=== PATIENT | male | born 2000 | race American Indian/Alaskan Native ===

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

== ENCOUNTER 2018-04-03 21:35 | Emergency (ER) | payer MEDICAID, OTHER ==
[2018-04-03 21:42] VITALS: BP 143/86
[2018-04-03] MEDS: Acetaminophen/HYDROcodone 325-10 MG Tab PO ONE (21:56)
--- NOTE | 2018-04-03 22:54 | EDM.PDOC ---
ED HPI GENERAL MEDICAL PROBLEM - General Chief Complaint: Lower Extremity Injury/Pain Stated Complaint: LEFT KNEE [id number] Time Seen by Provider: 04/03/18 21:55 Source of Information: Reports: Patient History Limitations: Reports: No Limitations - History of Present Illness INITIAL COMMENTS - FREE TEXT/NARRATIVE: ED per w/c with c/o left knee pain. Reported playing basketball [employer] and momentum going one way and knee went other. No other injury. Pain with minimal movement, Has not tried weight bearing. Left Knee Pain Score (Numeric/FACES): 10 - Related Data Allergies Allergy/AdvReac Type Severity Reaction Status Date / Time No Known Allergies Allergy Verified 04/03/18 21:38 Home Meds: Home Meds . [No Known Home Meds] 12/01/13 [History] Past Medical History - Past Health History Medical/Surgical History: Denies Medical/Surgical History HEENT History: Reports: None Cardiovascular History: Reports: None Respiratory History: Reports: None Gastrointestinal History: Reports: Bowel Obstruction, Other (See Below) Other Gastrointestinal History: small bowel obs?? Genitourinary History: Reports: None Musculoskeletal History: Reports: None Neurological History: Reports: None Psychiatric History: Reports: None Endocrine/Metabolic History: Reports: None Hematologic History: Reports: None Immunologic History: Reports: None Oncologic (Cancer) History: Reports: None Dermatologic History: Reports: None - Past Surgical History GI Surgical History: Reports: Other (See Below) Social & Family History - Family History Family Medical History: Unobtainable Endocrine/Metabolic: Reports: Diabetes, type II - Tobacco Use Smoking Status *Q: Light Tobacco Smoker Years of Tobacco use: 1 Packs/Tins Daily: 0.1 - Caffeine Use Caffeine Use: Reports: Soda - Recreational Drug Use Recreational Drug Use: No - Living Situation & Occupation Living situation: Reports: with Family Review of Systems - Review of Systems Review Of Systems: ROS reveals no pertinent complaints other than HPI. ED EXAM, GENERAL - Physical Exam Exam: See Below Exam Limited By: No Limitations General Appearance: Alert, Moderate Distress Eye Exam: Bilateral Eye: EOMI Ears: Normal External Exam Nose: Normal Inspection Throat/Mouth: Normal Inspection Head: Atraumatic, Normocephalic Neck: Normal Inspection Respiratory/Chest: No Respiratory Distress, Lungs Clear Cardiovascular: Regular Rate, Rhythm Extremities: Joint Swelling (left knee , mild swelling, no gross deformity mild crepitus), Limited Range of Motion, Other (pain with palpation greater medial no laxity. incerease pain with flexion). No: Normal Range of Motion Course - Vital Signs Last Recorded V/S: Last Vital Signs Temp 98.3 F 04/03/18 21:41 Pulse 102 H 04/03/18 21:41 Resp 22 H 04/03/18 21:41 BP 143/86 H 04/03/18 21:41 Pulse Ox 100 04/03/18 21:41 - Orders/Labs/Meds Meds: Medications Discontinued Medications Generic Name Dose Route Start Last Admin Trade Name Freq PRN Reason Stop Dose Admin Hydrocodone Bitart/Acetaminophen 1 tab 04/03/18 21:47 04/03/18 21:56 Weston 325-10 Mg PO 04/03/18 21:48 1 tab ONETIME ONE Administration - Radiology Interpretation Free Text/Narrative:: Xray left knee, soft tissue swelling no fracture Departure - Departure Time of Disposition: 22:50 Disposition: Home, Self-Care 01 Condition: Good Clinical Impression: Left knee injury Qualifiers: Encounter type: initial encounter Qualified Code(s): S89.92XA - Unspecified injury of left lower leg, initial encounter - Discharge Information *PRESCRIPTION DRUG MONITORING PROGRAM REVIEWED*: No Instructions: Knee Sprain, Adult, [id number] Forms: ED Department Discharge Additional Instructions: knee immobilizer and crutches, weight bearing as tolerated ice to left knee alternate tylenol 650mg and ibuprofen 600mg every 4 hours as needed Follow with primary care this week or next, if continued pain or weakness MRI may be needed.
== END 2018-04-03 22:58 | disposition home or self-care (01) ==
LOC: DL.ED 21:35
DX: S89.92XA Unspecified injury of left lower leg, initial encounter (principal); F17.210 Nicotine dependence, cigarettes, uncomplicated; X50.9XXA Other and unspecified overexertion or strenuous movements or postures, initial encounter; Y93.67 Activity, basketball
CPT/HCPCS: 73562; 99283; A9270

== ENCOUNTER 2021-02-01 23:36 | Inpatient (IN) | payer MEDICAID, OTHER ==
[2021-02-02] MEDS ORDERED: Sodium Chloride 0.9% 1,000 ML IV ONE ×2 (00:15→03:20)
[2021-02-02] MEDS ORDERED: Ondansetron 4 MG/2 ML SDV IV ONE (00:15)
[2021-02-02 00:34] LABS: ANION GAP 13.7 mEq/L (7-13); CHLORIDE,CL 105 mmol/L (98-107); SODIUM,NA 144 mmol/L (136-145)
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
[2021-02-02] MEDS ORDERED: Iopamidol 612 MG/ML 100 ML Bottle IVPUSH ONE (00:46)
[2021-02-02 02:47] LABS: CORONAVIRUS COVID-19 NAA NEGATIVE (NEGATIVE)
--- NOTE | 2021-02-02 03:07 | CT ---
PROCEDURE INFORMATION: Exam: CT Abdomen And Pelvis With Contrast Exam date and time: 02/02/2021 1:59 AM Age: 20 years old Clinical indication: Vomiting and other: Wbc 11.7; Additional info: Abdominal pain, HX sbo TECHNIQUE: Imaging protocol: Computed tomography of the abdomen and pelvis with contrast. Radiation optimization: All CT scans at this facility use at least one of these dose optimization techniques: automated exposure control; mA and/or kV adjustment per patient size (includes targeted exams where dose is matched to clinical indication); or iterative reconstruction. Contrast material: [id number]; Contrast volume: 100 ml; Contrast route: INTRAVENOUS (IV); COMPARISON: CT Chest Abdomen Pelvis w Cont 08/09/2018 2:30 AM FINDINGS: Lungs: Mild hypoventilatory change dependent left lung. Liver: Hepatic steatosis. Lobulated low-attenuation in a subcapsular location associated with the anterior aspect of the posterior segment of the right lobe of the liver. Gallbladder and bile ducts: Normal. No calcified stones. No ductal dilation. Pancreas: Normal. No ductal dilation. Spleen: Normal. No splenomegaly. Adrenal glands: Normal. No mass. Kidneys and ureters: Normal. No hydronephrosis. Stomach and bowel: The there is fluid distension of mid to distal small bowel associated with fecalization of small bowel content, proximal to a site of moderately abrupt transition in the midline lower anterior abdomen. This appears to be due to site of clumped/tethered and adherent loops of small bowel likely related to adhesions. Terminal ileum and distal ileal loops are collapsed. Small bowel is dilated to a diameter of to 4.0 cm proximal to the site of transition and 12/09. Appendix: Appendix is normal in caliber without inflammatory change. Intraperitoneal space: There is mild edema and small amount fluid within the associated mesenteric fat in the lower anterior abdomen. Vasculature: Unremarkable. No abdominal aortic aneurysm. Lymph nodes: Unremarkable. No enlarged lymph nodes. Urinary bladder: Unremarkable as visualized. Reproductive: Unremarkable as visualized. Bones/joints: Unremarkable. No acute fracture. Soft tissues: Unremarkable. IMPRESSION: Moderate grade small bowel obstruction at the lower of the lobar and anterior abdomen involving proximal/mid ileum. There are tethered loops of small bowel in the anterior right paramidline lower abdomen with there is a moderate degree of transition with bowel proximal to the site partial obstruction measuring up to 4.0 cm. The bowel distal to the perceived site obstruction measures less than a cm in diameter. Lobulated subcapsular low-attenuation soft tissue within the posterior segment right lobe of the liver may represent focal fatty infiltration or may be cystic or solid. Consider initial further assessment with hepatic ultrasound to aid characterization.
[2021-02-02] MEDS ORDERED: fentaNYL 100 MCG/2 ML SDV IVPUSH ONE (03:52)
--- NOTE | 2021-02-02 04:09 | CR ---
PROCEDURE INFORMATION: Exam: XR Abdomen Exam date and time: 02/02/2021 3:54 AM Age: 20 years old Clinical indication: Other: Ng placement; Additional info: Confirm ng/og tube placement TECHNIQUE: Imaging protocol: XR of the abdomen. Views: Frontal supine view of the abdomen. 1 View. COMPARISON: CT Abdomen Pelvis w Cont 02/02/2021 1:59 AM FINDINGS: Tubes, catheters and devices: Tip of enteric catheter is in the region of the gastric body. Lungs: Visualized lungs are clear. Gastrointestinal tract: Normal. No bowel dilation. Bones/joints: Unremarkable. IMPRESSION: Tip of enteric catheter in the gastric body.
[2021-02-02] MEDS ORDERED: Ondansetron 4 MG/2 ML SDV IVPUSH PRN (05:27)
[2021-02-02] MEDS ORDERED: Ketorolac 30 MG/ML SDV IVPUSH PRN (05:28)
[2021-02-02 16:16] VITALS: BP 133/69; PULSE 57
[2021-02-02] MEDS ORDERED: Sodium Chloride 0.9% 1,000 ML IV SCH (17:30)
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
== END 2021-02-02 18:10 | disposition left against medical advice (07) | DRG 390 ==
LOC: DL.ED 23:36 → DL.MS 02-02 03:22 → DL.ED 02-02 03:52
PROVIDERS: ADMIT Internal Medicine; ATTEND Internal Medicine
PROC: 0D9670Z Drainage of Stomach with Drainage Device, Via Natural or Artificial Opening (ICD-10-PCS; principal; 2021-02-02)
DX: K56.600 Partial intestinal obstruction, unspecified as to cause (principal); H54.7 Unspecified visual loss; Z20.822 Contact with and (suspected) exposure to COVID-19
CPT/HCPCS: 0240U; 36415; 43752; 74018; 74177; 80053; 80305-QW; 80307; 81003; 82150; 83605; 83690; 85025; 86140; 87040; 96374; 99284; 99285-25; J1885; J2405; J3010; J7030; Q9967

== ENCOUNTER 2022-06-30 11:47 | Emergency (ER) | payer SELFPAY | END 2022-06-30 12:32 | disposition home or self-care (01) | LOC: DL.ED 11:47 | DX: Z53.21 Procedure and treatment not carried out due to patient leaving prior to being seen by health care provider (principal) ==

== ENCOUNTER 2023-08-23 04:21 | Emergency (ER) | payer SELFPAY ==
[2023-08-23] MEDS ORDERED: Hydrocortisone 2.5% Crm 30 GM Tube TOP ONE (04:53)
[2023-08-23] MEDS ORDERED: Betamethasone Dipropionate 0.05% Crm 15 GM Tube TOP ONE (05:01)
[2023-08-23 05:09] LABS: BASOPHILS PERCENT AUTO 0.2 % (0.0-1.0); LYMPHOCYTES PERCENT AUTO 14.5 % (20.5-50.1); MEAN CORPUSCULAR HEMOGLOBIN 31.5 pg (27.0-34.0); MEAN CORPUSCULAR VOLUME 92.5 fL (80-100); MONOCYTES PERCENT AUTO 4.8 % (2-8); NEUTROPHILS PERCENT AUTO 80.5 % (42.2-75.2); PLATELET COUNT,PLT 307 10^3/uL (150-450); RED BLOOD CELL COUNT 5.08 10^6/uL (4.6-6.2); WHITE BLOOD CELL COUNT,WBC 13.8 10^3/uL (5.0-10.0)
[2023-08-23 05:26] LABS: A/G RATIO 0.9; ALANINE AMINOTRANSFERASE,ALT 241 U/L (16-63); ALBUMIN 3.8 g/dL (3.4-5.0); ALKALINE PHOSPHATASE 113 U/L (46-116); ANION GAP 13.6 mEq/L (7-13); ASPARTATE AMNIOTRANSFERASE,AST 93 U/L (15-37); BILIRUBIN TOTAL 0.5 mg/dL (0.2-1.0); BLOOD UREA NITROGEN,BUN 5 mg/dL (7-18); BUN/CREATININE RATIO 4.7 (No establ ref range); CALCIUM 8.2 mg/dL (8.5-10.1); CARBON DIOXIDE,CO2 27 mmol/L (21-32); CHLORIDE,CL 105 mmol/L (98-107); CREATININE 1.06 mg/dL (0.70-1.30); EST CRCL DRUG DOSING (CG) 96.13 mL/min; ESTIMATED GFR 100 mL/min (>=60); GLUCOSE RANDOM 182 mg/dL (70-99); POTASSIUM,K 3.6 mmol/L (3.5-5.1); PROTEIN TOTAL,TP 8.2 g/dL (6.4-8.2); SODIUM,NA 142 mmol/L (136-145)
[2023-08-23 06:07] VITALS: BP 118/72; PULSE 98
== END 2023-08-23 05:54 | disposition home or self-care (01) ==
LOC: DL.ED 04:21
DX: L40.0 Psoriasis vulgaris (principal); R73.9 Hyperglycemia, unspecified; R94.5 Abnormal results of liver function studies
CPT/HCPCS: 36415; 80053; 85025; 87389; 99283; 99284; A9270-GY

== ENCOUNTER 2024-12-11 20:43 | Emergency (ER) | payer SELFPAY ==
[2024-12-11 21:00] VITALS: BP 160/68; PULSE 89
[2024-12-11] MEDS: Pseudoephedrine 30 MG Tab PO ONE (21:15)
== END 2024-12-11 21:30 ==
LOC: DL.ED 20:43
DX: N48.30 Priapism, unspecified (principal)
CPT/HCPCS: 99284; A9270